=== PATIENT | male | born 1965 | race African-American/Black ===

== ENCOUNTER 2023-07-09 17:27 | Inpatient (IN) | payer OTHER ==
[2023-07-10] MEDS ORDERED: hydrOXYzine PAMOATE 25 MG CAPSULE (FP) PO PRN (01:38)
[2023-07-10] MEDS ORDERED: IBUPROFEN 600 MG TABLET (FP) PO PRN (01:38)
[2023-07-10] MEDS ORDERED: NALOXONE HCL (KLOXXADO) 8 MG SPRAY NS PRN (01:38)
[2023-07-10] MEDS ORDERED: MAGNESIUM HYDROX 2400MG/30ML ORAL SUSPENSION 30 ML CUP PO PRN (01:38)
[2023-07-10] MEDS ORDERED: BENZOCAINE/MENTHOL (CHLORASEPTIC ) LOZENGE MM PRN (01:38)
[2023-07-10] MEDS ORDERED: COLLOIDAL OATMEAL 1 BAR EACH TP PRN (01:38)
[2023-07-10] MEDS ORDERED: MAG HYDROX/AL HYDROX/SIMETH 30 ML UNIT-DOSE CUP PO PRN (01:38)
[2023-07-10] MEDS ORDERED: IBUPROFEN 400 MG TABLET (FP) PO PRN (01:38)
[2023-07-10] MEDS ORDERED: guaiFENesin 600 MG TABLET.ER (FP) PO PRN (01:38)
[2023-07-10] MEDS ORDERED: NICOTINE POLACRILEX 2 MG GUM BUC PRN (01:38)
[2023-07-10] MEDS ORDERED: POLYETHYLENE GLYCOL (HEALTHYLAX) 3350 17 GM PACKET PO PRN (01:38)
[2023-07-10] MEDS ORDERED: LOPERAMIDE HCL 2 MG CAPSULE PO PRN (01:38)
[2023-07-10] MEDS ORDERED: NALOXONE HCL 0.4 MG/ML VIAL IM PRN (01:38)
[2023-07-10] MEDS ORDERED: BENZONATATE 200 MG CAPSULE PO PRN (01:38)
[2023-07-10] MEDS ORDERED: ACETAMINOPHEN 325 MG TABLET (FP) PO PRN (01:38)
[2023-07-10] MEDS: INSULIN SLIDING SCALE (NOVOLOG) 1 VIAL SQ SCH ×3 (06:49→16:20)
[2023-07-10] MEDS: PRENATAL VITAMINS W/ FOLIC ACID TABLET (FP) PO SCH (09:58)
[2023-07-10] MEDS: NICOTINE 14 MG/24 HOURS TOPICAL PATCH TD SCH (09:59)
[2023-07-10] MEDS ORDERED: metFORMIN HCL 500 MG TABLET (FP) PO SCH (10:00)
[2023-07-10 11:49] LABS: HEMATOCRIT 36.7 % (35.4-49); HEMOGLOBIN 11.9 GM/dL (11.7-16.9); MCH 26.1 pg (25.7-33.7); MCHC 32.3 g/dl (32.0-35.9); MEAN CELL VOLUME 80.6 fl (80-96); MEAN PLT VOLUME 7.8 fl (7.5-11.1); PLATELET COUNT 409 10^3/uL (134-434); RBC 4.55 M/mm3 (4.00-5.60); RDW 14.5 % (11.9-15.9); WHITE BLOOD COUNT 8.5 K/mm3 (4.0-10.0)
[2023-07-10 12:02] LABS: POTASSIUM 5.1 mmol/L (3.5-5.1)
[2023-07-10 12:06] LABS: PH,URINE 5.5 (5.0-8.0); URINE APPEARANCE Clear; URINE BILIRUBIN Negative (NEGATIVE); URINE COLOR Yellow; URINE GLUCOSE (UA) 2+ (NEGATIVE); URINE KETONE Negative (NEGATIVE); URINE LEUK ESTERASE Negative (NEGATIVE); URINE NITRITE Negative (NEGATIVE); URINE PROTEIN 1+ (NEGATIVE); URINE UROBILINOGEN 0.2 mg/dL (0.2-1.0)
[2023-07-10 12:17] LABS: CALCIUM 8.9 mg/dL (8.5-10.1)
[2023-07-10 12:22] LABS: BILIRUBIN,TOTAL 0.2 mg/dL (0.2-1); TOT PROT 6.7 g/dl (6.4-8.2)
[2023-07-10 13:02] LABS: SYPHILIS W/ RPR CONF REACTIVE (NONREACTIVE)
[2023-07-10] MEDS: metFORMIN HCL 500 MG TABLET (FP) PO SCH (17:08)
[2023-07-10] MEDS: THIAMINE HCL 100 MG TABLET (FP) PO SCH (21:27)
[2023-07-10] MEDS: MELATONIN 5 MG TABLETS PO SCH (21:27)
[2023-07-11] MEDS: metFORMIN HCL 500 MG TABLET (FP) PO SCH ×2 (06:07→18:25)
[2023-07-11] MEDS: INSULIN SLIDING SCALE (NOVOLOG) 1 VIAL SQ SCH ×3 (07:06→16:30)
[2023-07-11] MEDS: NICOTINE 14 MG/24 HOURS TOPICAL PATCH TD SCH (09:46)
[2023-07-11] MEDS: PRENATAL VITAMINS W/ FOLIC ACID TABLET (FP) PO SCH (09:46)
[2023-07-11] MEDS ORDERED: TUBERCULIN PPD 5 TU/0.1ML VIAL ID ONE (11:07)
[2023-07-11] MEDS ORDERED: TUBERCULIN PPD 5 TU/0.1ML SYRINGE (IN PATIENT USE ONLY) ID ONE (12:00)
[2023-07-11] MEDS: THIAMINE HCL 100 MG TABLET (FP) PO SCH (21:17)
[2023-07-11] MEDS: MELATONIN 5 MG TABLETS PO SCH (21:17)
[2023-07-12] MEDS: metFORMIN HCL 500 MG TABLET (FP) PO SCH ×2 (06:08→17:32)
[2023-07-12] MEDS: INSULIN SLIDING SCALE (NOVOLOG) 1 VIAL SQ SCH ×3 (06:50→16:27)
[2023-07-12] MEDS: PRENATAL VITAMINS W/ FOLIC ACID TABLET (FP) PO SCH (10:03)
[2023-07-12] MEDS: NICOTINE 14 MG/24 HOURS TOPICAL PATCH TD SCH (10:03)
[2023-07-12] MEDS ORDERED: LACTULOSE 20 GM/30 ML UDC (FOR ORAL USE ONLY) PO PRN (10:28)
[2023-07-12] MEDS: PANTOPRAZOLE 20 MG TABLET PO SCH (11:08)
[2023-07-12] MEDS: BACITRACIN 0.9 GM PACKET TP SCH ×2 (11:08→21:28)
[2023-07-12] MEDS: MELATONIN 5 MG TABLETS PO SCH (21:28)
[2023-07-12] MEDS: THIAMINE HCL 100 MG TABLET (FP) PO SCH (21:28)
[2023-07-12] MEDS ORDERED: ONDANSETRON *ODT* 4 MG TABLET SL ONE (22:35)
[2023-07-13] MEDS: INSULIN SLIDING SCALE (NOVOLOG) 1 VIAL SQ SCH ×3 (06:33→16:25)
[2023-07-13] MEDS: metFORMIN HCL 500 MG TABLET (FP) PO SCH ×2 (06:34→17:03)
[2023-07-13] MEDS: NICOTINE 14 MG/24 HOURS TOPICAL PATCH TD SCH (10:24)
[2023-07-13] MEDS: BACITRACIN 0.9 GM PACKET TP SCH ×2 (10:24→21:34)
[2023-07-13] MEDS: PRENATAL VITAMINS W/ FOLIC ACID TABLET (FP) PO SCH (10:25)
[2023-07-13] MEDS: PANTOPRAZOLE 20 MG TABLET PO SCH (10:25)
[2023-07-13] MEDS ORDERED: TRIMETHOBENZAMIDE HCL 200MG/2ML INJ IM ONE (12:49)
[2023-07-13] MEDS: ONDANSETRON *ODT* 4 MG TABLET SL PRN (17:45)
[2023-07-13] MEDS: THIAMINE HCL 100 MG TABLET (FP) PO SCH (21:34)
[2023-07-13] MEDS: MELATONIN 5 MG TABLETS PO SCH (21:34)
[2023-07-14] MEDS: metFORMIN HCL 500 MG TABLET (FP) PO SCH ×2 (06:34→18:55)
[2023-07-14] MEDS: INSULIN SLIDING SCALE (NOVOLOG) 1 VIAL SQ SCH ×4 (06:34→16:52)
[2023-07-14] MEDS: ONDANSETRON *ODT* 4 MG TABLET SL PRN (07:16)
[2023-07-14] MEDS: PANTOPRAZOLE 20 MG TABLET PO SCH (09:40)
[2023-07-14] MEDS: BACITRACIN 0.9 GM PACKET TP SCH ×2 (09:40→21:42)
[2023-07-14] MEDS: PRENATAL VITAMINS W/ FOLIC ACID TABLET (FP) PO SCH (09:40)
[2023-07-14] MEDS: NICOTINE 14 MG/24 HOURS TOPICAL PATCH TD SCH (09:40)
[2023-07-14 18:48] VITALS: BMI 30.3
[2023-07-14] MEDS ORDERED: METOPROLOL TARTRATE 25 MG TABLET (FP) PO ONE (20:23)
[2023-07-14] MEDS: MELATONIN 5 MG TABLETS PO SCH (21:42)
[2023-07-14] MEDS: THIAMINE HCL 100 MG TABLET (FP) PO SCH (21:42)
[2023-07-15] MEDS: INSULIN SLIDING SCALE (NOVOLOG) 1 VIAL SQ SCH ×3 (06:20→17:55)
[2023-07-15] MEDS: metFORMIN HCL 500 MG TABLET (FP) PO SCH ×3 (07:03→19:07)
[2023-07-15] MEDS: PANTOPRAZOLE 20 MG TABLET PO SCH (09:49)
[2023-07-15] MEDS: BACITRACIN 0.9 GM PACKET TP SCH ×2 (09:49→21:22)
[2023-07-15] MEDS: PRENATAL VITAMINS W/ FOLIC ACID TABLET (FP) PO SCH (09:49)
[2023-07-15] MEDS: NICOTINE 14 MG/24 HOURS TOPICAL PATCH TD SCH (09:49)
[2023-07-15] MEDS ORDERED: SIMETHICONE 80 MG TAB.CHEW (FP) PO PRN (10:24)
[2023-07-15] MEDS: THIAMINE HCL 100 MG TABLET (FP) PO SCH (21:21)
[2023-07-15] MEDS: MELATONIN 5 MG TABLETS PO SCH (21:21)
[2023-07-16] MEDS: ONDANSETRON *ODT* 4 MG TABLET SL PRN (03:10)
[2023-07-16] MEDS: metFORMIN HCL 500 MG TABLET (FP) PO SCH ×2 (06:22→18:48)
[2023-07-16] MEDS: INSULIN SLIDING SCALE (NOVOLOG) 1 VIAL SQ SCH ×3 (07:48→18:49)
[2023-07-16] MEDS ORDERED: ASPIRIN 81 MG CHEWABLE TABLETS PO ONE (09:09)
[2023-07-16] MEDS: PRENATAL VITAMINS W/ FOLIC ACID TABLET (FP) PO SCH (09:25)
[2023-07-16] MEDS: BACITRACIN 0.9 GM PACKET TP SCH ×2 (09:26→21:20)
[2023-07-16] MEDS: NICOTINE 14 MG/24 HOURS TOPICAL PATCH TD SCH (09:26)
[2023-07-16] MEDS: PANTOPRAZOLE 20 MG TABLET PO SCH (09:26)
[2023-07-16 10:30] LABS: BASO % 0.3 % (0-2.0); EOS % 0.2 % (0-4.5); HEMATOCRIT 43.8 % (35.4-49); LYMPH % 15.4 % (8-40); MCH 26.5 pg (25.7-33.7); MCHC 34.2 g/dl (32.0-35.9); MEAN CELL VOLUME 77.4 fl (80-96); MEAN PLT VOLUME 7.5 fl (7.5-11.1); MONO % 6.5 % (3.8-10.2); NEUT % 77.6 % (42.8-82.8); PLATELET COUNT 456 10^3/uL (134-434); RBC 5.66 M/mm3 (4.00-5.60); RDW 14.8 % (11.9-15.9); WHITE BLOOD COUNT 11.5 K/mm3 (4.0-10.0)
[2023-07-16 10:52] LABS: POTASSIUM 4.3 mmol/L (3.5-5.1)
[2023-07-16 10:55] LABS: ALBUMIN 3.4 g/dl (3.4-5.0); BLOOD UREA NITROGEN 35.8 mg/dL (7-18); CALCIUM 9.2 mg/dL (8.5-10.1); MAGNESIUM 2.2 mg/dL (1.8-2.4)
[2023-07-16 10:58] LABS: CREATININE 1.8 mg/dL (0.55-1.3)
[2023-07-16 11:00] LABS: BILIRUBIN,TOTAL 0.6 mg/dL (0.2-1); TOT PROT 7.6 g/dl (6.4-8.2)
[2023-07-16] MEDS ORDERED: cloNIDine HCL 0.1 MG TABLET PO ONE (19:02)
[2023-07-16] MEDS: THIAMINE HCL 100 MG TABLET (FP) PO SCH (21:20)
[2023-07-16] MEDS: MELATONIN 5 MG TABLETS PO SCH (21:20)
[2023-07-16] MEDS ORDERED: MAG HYDROX/AL HYDROX/SIMETH 30 ML UNIT-DOSE CUP PO PRN (22:25)
[2023-07-17] MEDS: metFORMIN HCL 500 MG TABLET (FP) PO SCH ×2 (06:25→17:08)
[2023-07-17] MEDS: INSULIN SLIDING SCALE (NOVOLOG) 1 VIAL SQ SCH ×3 (07:11→16:20)
[2023-07-17] MEDS: PANTOPRAZOLE 20 MG TABLET PO SCH (09:04)
[2023-07-17] MEDS: PRENATAL VITAMINS W/ FOLIC ACID TABLET (FP) PO SCH (09:04)
[2023-07-17] MEDS: BACITRACIN 0.9 GM PACKET TP SCH ×2 (09:04→21:07)
[2023-07-17] MEDS: NICOTINE 14 MG/24 HOURS TOPICAL PATCH TD SCH (09:04)
[2023-07-17] MEDS: MELATONIN 5 MG TABLETS PO SCH (21:07)
[2023-07-17] MEDS: THIAMINE HCL 100 MG TABLET (FP) PO SCH (21:07)
[2023-07-18] MEDS: metFORMIN HCL 500 MG TABLET (FP) PO SCH ×2 (06:29→17:04)
[2023-07-18] MEDS: INSULIN SLIDING SCALE (NOVOLOG) 1 VIAL SQ SCH ×3 (07:23→16:17)
[2023-07-18] MEDS: NICOTINE 14 MG/24 HOURS TOPICAL PATCH TD SCH (10:09)
[2023-07-18] MEDS: PRENATAL VITAMINS W/ FOLIC ACID TABLET (FP) PO SCH (10:09)
[2023-07-18] MEDS: BACITRACIN 0.9 GM PACKET TP SCH ×2 (10:09→21:05)
[2023-07-18] MEDS: PANTOPRAZOLE 20 MG TABLET PO SCH (10:10)
[2023-07-18] MEDS: THIAMINE HCL 100 MG TABLET (FP) PO SCH (21:05)
[2023-07-18] MEDS: MELATONIN 5 MG TABLETS PO SCH (21:05)
[2023-07-19] MEDS: metFORMIN HCL 500 MG TABLET (FP) PO SCH ×2 (06:08→18:10)
[2023-07-19] MEDS: INSULIN SLIDING SCALE (NOVOLOG) 1 VIAL SQ SCH ×3 (07:14→16:18)
[2023-07-19] MEDS: NICOTINE 14 MG/24 HOURS TOPICAL PATCH TD SCH (10:06)
[2023-07-19] MEDS: PANTOPRAZOLE 20 MG TABLET PO SCH (10:06)
[2023-07-19] MEDS: PRENATAL VITAMINS W/ FOLIC ACID TABLET (FP) PO SCH (10:06)
[2023-07-19] MEDS: BACITRACIN 0.9 GM PACKET TP SCH ×2 (10:06→21:28)
[2023-07-19] MEDS: THIAMINE HCL 100 MG TABLET (FP) PO SCH (21:28)
[2023-07-19] MEDS: MELATONIN 5 MG TABLETS PO SCH (21:28)
[2023-07-20] MEDS: metFORMIN HCL 500 MG TABLET (FP) PO SCH ×2 (06:41→17:31)
[2023-07-20] MEDS: INSULIN SLIDING SCALE (NOVOLOG) 1 VIAL SQ SCH ×3 (06:41→16:25)
[2023-07-20] MEDS: PRENATAL VITAMINS W/ FOLIC ACID TABLET (FP) PO SCH (09:55)
[2023-07-20] MEDS: NICOTINE 14 MG/24 HOURS TOPICAL PATCH TD SCH (09:55)
[2023-07-20] MEDS: BACITRACIN 0.9 GM PACKET TP SCH ×2 (09:55→21:51)
[2023-07-20] MEDS: PANTOPRAZOLE 20 MG TABLET PO SCH (09:56)
[2023-07-20] MEDS: THIAMINE HCL 100 MG TABLET (FP) PO SCH (21:50)
[2023-07-20] MEDS: MELATONIN 5 MG TABLETS PO SCH (21:50)
[2023-07-21] MEDS: metFORMIN HCL 500 MG TABLET (FP) PO SCH ×2 (06:26→17:13)
[2023-07-21] MEDS: INSULIN SLIDING SCALE (NOVOLOG) 1 VIAL SQ SCH ×3 (06:26→16:38)
[2023-07-21] MEDS: PANTOPRAZOLE 20 MG TABLET PO SCH (10:05)
[2023-07-21] MEDS: NICOTINE 14 MG/24 HOURS TOPICAL PATCH TD SCH (10:05)
[2023-07-21] MEDS: PRENATAL VITAMINS W/ FOLIC ACID TABLET (FP) PO SCH (10:05)
[2023-07-21] MEDS: BACITRACIN 0.9 GM PACKET TP SCH ×2 (10:05→21:41)
[2023-07-21] MEDS: MELATONIN 5 MG TABLETS PO SCH (21:41)
[2023-07-21] MEDS: THIAMINE HCL 100 MG TABLET (FP) PO SCH (21:41)
[2023-07-22] MEDS: metFORMIN HCL 500 MG TABLET (FP) PO SCH ×2 (06:15→18:40)
[2023-07-22] MEDS: INSULIN SLIDING SCALE (NOVOLOG) 1 VIAL SQ SCH ×3 (07:10→16:31)
[2023-07-22] MEDS: PRENATAL VITAMINS W/ FOLIC ACID TABLET (FP) PO SCH (09:55)
[2023-07-22] MEDS: NICOTINE 14 MG/24 HOURS TOPICAL PATCH TD SCH (09:55)
[2023-07-22] MEDS: PANTOPRAZOLE 20 MG TABLET PO SCH (09:55)
[2023-07-22] MEDS: BACITRACIN 0.9 GM PACKET TP SCH ×2 (09:56→21:19)
[2023-07-22] MEDS: MELATONIN 5 MG TABLETS PO SCH (21:19)
[2023-07-22] MEDS: THIAMINE HCL 100 MG TABLET (FP) PO SCH (21:19)
[2023-07-23] MEDS: metFORMIN HCL 500 MG TABLET (FP) PO SCH ×2 (06:08→17:13)
[2023-07-23] MEDS: INSULIN SLIDING SCALE (NOVOLOG) 1 VIAL SQ SCH ×3 (07:05→16:22)
[2023-07-23] MEDS: PRENATAL VITAMINS W/ FOLIC ACID TABLET (FP) PO SCH (10:02)
[2023-07-23] MEDS: PANTOPRAZOLE 20 MG TABLET PO SCH (10:02)
[2023-07-23] MEDS: BACITRACIN 0.9 GM PACKET TP SCH ×2 (10:03→21:07)
[2023-07-23] MEDS: NICOTINE 14 MG/24 HOURS TOPICAL PATCH TD SCH (10:03)
[2023-07-23] MEDS: THIAMINE HCL 100 MG TABLET (FP) PO SCH (21:07)
[2023-07-23] MEDS: MELATONIN 5 MG TABLETS PO SCH (21:07)
[2023-07-24] MEDS: metFORMIN HCL 500 MG TABLET (FP) PO SCH ×2 (06:19→17:33)
[2023-07-24] MEDS: INSULIN SLIDING SCALE (NOVOLOG) 1 VIAL SQ SCH ×3 (06:37→16:26)
[2023-07-24] MEDS: BACITRACIN 0.9 GM PACKET TP SCH ×2 (09:38→21:15)
[2023-07-24] MEDS: PRENATAL VITAMINS W/ FOLIC ACID TABLET (FP) PO SCH (09:38)
[2023-07-24] MEDS: PANTOPRAZOLE 20 MG TABLET PO SCH (09:38)
[2023-07-24] MEDS: NICOTINE 14 MG/24 HOURS TOPICAL PATCH TD SCH (09:38)
[2023-07-24] MEDS: MELATONIN 5 MG TABLETS PO SCH (21:14)
[2023-07-24] MEDS: THIAMINE HCL 100 MG TABLET (FP) PO SCH (21:14)
[2023-07-25] MEDS: metFORMIN HCL 500 MG TABLET (FP) PO SCH ×2 (06:17→17:12)
[2023-07-25] MEDS: INSULIN SLIDING SCALE (NOVOLOG) 1 VIAL SQ SCH ×4 (07:03→22:11)
[2023-07-25] MEDS: NICOTINE 14 MG/24 HOURS TOPICAL PATCH TD SCH (09:15)
[2023-07-25] MEDS: PRENATAL VITAMINS W/ FOLIC ACID TABLET (FP) PO SCH (09:15)
[2023-07-25] MEDS: PANTOPRAZOLE 20 MG TABLET PO SCH (09:15)
[2023-07-25] MEDS: BACITRACIN 0.9 GM PACKET TP SCH ×2 (09:15→21:26)
[2023-07-25] MEDS: MELATONIN 5 MG TABLETS PO SCH (21:26)
[2023-07-25] MEDS: THIAMINE HCL 100 MG TABLET (FP) PO SCH (21:26)
[2023-07-26] MEDS: metFORMIN HCL 500 MG TABLET (FP) PO SCH ×2 (06:24→17:04)
[2023-07-26] MEDS: INSULIN SLIDING SCALE (NOVOLOG) 1 VIAL SQ SCH ×4 (06:26→21:01)
[2023-07-26] MEDS: BACITRACIN 0.9 GM PACKET TP SCH ×2 (09:33→21:02)
[2023-07-26] MEDS: PANTOPRAZOLE 20 MG TABLET PO SCH (09:34)
[2023-07-26] MEDS: PRENATAL VITAMINS W/ FOLIC ACID TABLET (FP) PO SCH (09:34)
[2023-07-26] MEDS: NICOTINE 14 MG/24 HOURS TOPICAL PATCH TD SCH (09:34)
[2023-07-26] MEDS: MELATONIN 5 MG TABLETS PO SCH (21:01)
[2023-07-26] MEDS: THIAMINE HCL 100 MG TABLET (FP) PO SCH (21:26)
[2023-07-27] MEDS: metFORMIN HCL 500 MG TABLET (FP) PO SCH ×2 (06:49→17:06)
[2023-07-27] MEDS: INSULIN SLIDING SCALE (NOVOLOG) 1 VIAL SQ SCH ×4 (06:49→21:16)
[2023-07-27] MEDS: BACITRACIN 0.9 GM PACKET TP SCH ×2 (09:41→21:16)
[2023-07-27] MEDS: NICOTINE 14 MG/24 HOURS TOPICAL PATCH TD SCH (09:41)
[2023-07-27] MEDS: PRENATAL VITAMINS W/ FOLIC ACID TABLET (FP) PO SCH (09:41)
[2023-07-27] MEDS: PANTOPRAZOLE 20 MG TABLET PO SCH (09:41)
[2023-07-27] MEDS: THIAMINE HCL 100 MG TABLET (FP) PO SCH (21:16)
[2023-07-27] MEDS: MELATONIN 5 MG TABLETS PO SCH (21:16)
[2023-07-28] MEDS: metFORMIN HCL 500 MG TABLET (FP) PO SCH ×2 (06:00→18:27)
[2023-07-28] MEDS: INSULIN SLIDING SCALE (NOVOLOG) 1 VIAL SQ SCH ×4 (06:16→21:17)
[2023-07-28] MEDS: NICOTINE 14 MG/24 HOURS TOPICAL PATCH TD SCH (09:19)
[2023-07-28] MEDS: PANTOPRAZOLE 20 MG TABLET PO SCH (09:19)
[2023-07-28] MEDS: BACITRACIN 0.9 GM PACKET TP SCH ×2 (09:19→21:17)
[2023-07-28] MEDS: PRENATAL VITAMINS W/ FOLIC ACID TABLET (FP) PO SCH (09:19)
[2023-07-28] MEDS: MELATONIN 5 MG TABLETS PO SCH (21:17)
[2023-07-28] MEDS: THIAMINE HCL 100 MG TABLET (FP) PO SCH (21:17)
[2023-07-29] MEDS: metFORMIN HCL 500 MG TABLET (FP) PO SCH ×2 (06:10→17:24)
[2023-07-29] MEDS: INSULIN SLIDING SCALE (NOVOLOG) 1 VIAL SQ SCH ×4 (06:13→21:44)
[2023-07-29] MEDS: PANTOPRAZOLE 20 MG TABLET PO SCH (09:26)
[2023-07-29] MEDS: PRENATAL VITAMINS W/ FOLIC ACID TABLET (FP) PO SCH (09:26)
[2023-07-29] MEDS: BACITRACIN 0.9 GM PACKET TP SCH ×2 (09:27→21:26)
[2023-07-29] MEDS: NICOTINE 14 MG/24 HOURS TOPICAL PATCH TD SCH (09:27)
[2023-07-29] MEDS: THIAMINE HCL 100 MG TABLET (FP) PO SCH (21:26)
[2023-07-29] MEDS: MELATONIN 5 MG TABLETS PO SCH (21:26)
[2023-07-30] MEDS: metFORMIN HCL 500 MG TABLET (FP) PO SCH ×2 (06:00→18:13)
[2023-07-30] MEDS: INSULIN SLIDING SCALE (NOVOLOG) 1 VIAL SQ SCH ×4 (07:27→21:20)
[2023-07-30] MEDS: PANTOPRAZOLE 20 MG TABLET PO SCH (09:24)
[2023-07-30] MEDS: PRENATAL VITAMINS W/ FOLIC ACID TABLET (FP) PO SCH (09:24)
[2023-07-30] MEDS: BACITRACIN 0.9 GM PACKET TP SCH ×2 (09:24→21:21)
[2023-07-30] MEDS: NICOTINE 14 MG/24 HOURS TOPICAL PATCH TD SCH (09:24)
[2023-07-30] MEDS: MELATONIN 5 MG TABLETS PO SCH (21:20)
[2023-07-30] MEDS: THIAMINE HCL 100 MG TABLET (FP) PO SCH (21:21)
[2023-07-31] MEDS: metFORMIN HCL 500 MG TABLET (FP) PO SCH ×2 (06:13→17:42)
[2023-07-31] MEDS: INSULIN SLIDING SCALE (NOVOLOG) 1 VIAL SQ SCH ×4 (07:22→21:20)
[2023-07-31] MEDS: PRENATAL VITAMINS W/ FOLIC ACID TABLET (FP) PO SCH (09:45)
[2023-07-31] MEDS: PANTOPRAZOLE 20 MG TABLET PO SCH (09:45)
[2023-07-31] MEDS: NICOTINE 14 MG/24 HOURS TOPICAL PATCH TD SCH (09:45)
[2023-07-31] MEDS: BACITRACIN 0.9 GM PACKET TP SCH ×2 (09:45→21:21)
[2023-07-31] MEDS: THIAMINE HCL 100 MG TABLET (FP) PO SCH (21:20)
[2023-07-31] MEDS: MELATONIN 5 MG TABLETS PO SCH (21:20)
[2023-08-01] MEDS: metFORMIN HCL 500 MG TABLET (FP) PO SCH ×2 (06:25→18:20)
[2023-08-01] MEDS: INSULIN SLIDING SCALE (NOVOLOG) 1 VIAL SQ SCH ×4 (06:28→21:22)
[2023-08-01] MEDS: BACITRACIN 0.9 GM PACKET TP SCH ×2 (10:18→21:21)
[2023-08-01] MEDS: PRENATAL VITAMINS W/ FOLIC ACID TABLET (FP) PO SCH (10:18)
[2023-08-01] MEDS: PANTOPRAZOLE 20 MG TABLET PO SCH (10:18)
[2023-08-01] MEDS: NICOTINE 14 MG/24 HOURS TOPICAL PATCH TD SCH (10:19)
[2023-08-01] MEDS: THIAMINE HCL 100 MG TABLET (FP) PO SCH (21:21)
[2023-08-01] MEDS: MELATONIN 5 MG TABLETS PO SCH (21:21)
[2023-08-02] MEDS: metFORMIN HCL 500 MG TABLET (FP) PO SCH ×2 (06:07→17:14)
[2023-08-02] MEDS: INSULIN SLIDING SCALE (NOVOLOG) 1 VIAL SQ SCH ×4 (06:09→21:29)
[2023-08-02] MEDS: PANTOPRAZOLE 20 MG TABLET PO SCH (10:46)
[2023-08-02] MEDS: BACITRACIN 0.9 GM PACKET TP SCH ×2 (10:46→21:29)
[2023-08-02] MEDS: NICOTINE 14 MG/24 HOURS TOPICAL PATCH TD SCH (10:46)
[2023-08-02] MEDS: PRENATAL VITAMINS W/ FOLIC ACID TABLET (FP) PO SCH (10:46)
[2023-08-02 11:10] VITALS: RESP 18
[2023-08-02] MEDS: MELATONIN 5 MG TABLETS PO SCH (21:28)
[2023-08-02] MEDS: THIAMINE HCL 100 MG TABLET (FP) PO SCH (21:28)
[2023-08-03] MEDS: metFORMIN HCL 500 MG TABLET (FP) PO SCH ×2 (06:16→17:07)
[2023-08-03] MEDS: INSULIN SLIDING SCALE (NOVOLOG) 1 VIAL SQ SCH ×4 (06:17→21:41)
[2023-08-03] MEDS: BACITRACIN 0.9 GM PACKET TP SCH ×2 (10:21→21:41)
[2023-08-03] MEDS: PANTOPRAZOLE 20 MG TABLET PO SCH (10:21)
[2023-08-03] MEDS: NICOTINE 14 MG/24 HOURS TOPICAL PATCH TD SCH (10:21)
[2023-08-03] MEDS: PRENATAL VITAMINS W/ FOLIC ACID TABLET (FP) PO SCH (10:21)
[2023-08-03] MEDS: THIAMINE HCL 100 MG TABLET (FP) PO SCH (21:40)
[2023-08-03] MEDS: MELATONIN 5 MG TABLETS PO SCH (21:41)
[2023-08-04] MEDS: metFORMIN HCL 500 MG TABLET (FP) PO SCH ×2 (06:44→17:16)
[2023-08-04] MEDS: INSULIN SLIDING SCALE (NOVOLOG) 1 VIAL SQ SCH ×4 (06:44→21:41)
[2023-08-04] MEDS: PANTOPRAZOLE 20 MG TABLET PO SCH (09:38)
[2023-08-04] MEDS: BACITRACIN 0.9 GM PACKET TP SCH ×2 (09:38→23:39)
[2023-08-04] MEDS: PRENATAL VITAMINS W/ FOLIC ACID TABLET (FP) PO SCH (09:38)
[2023-08-04] MEDS: NICOTINE 14 MG/24 HOURS TOPICAL PATCH TD SCH (09:39)
[2023-08-04] MEDS: MELATONIN 5 MG TABLETS PO SCH (21:41)
[2023-08-04] MEDS: THIAMINE HCL 100 MG TABLET (FP) PO SCH (21:41)
[2023-08-05] MEDS: metFORMIN HCL 500 MG TABLET (FP) PO SCH ×2 (06:44→17:22)
[2023-08-05] MEDS: INSULIN SLIDING SCALE (NOVOLOG) 1 VIAL SQ SCH ×4 (06:46→21:32)
[2023-08-05] MEDS: NICOTINE 14 MG/24 HOURS TOPICAL PATCH TD SCH (10:37)
[2023-08-05] MEDS: BACITRACIN 0.9 GM PACKET TP SCH ×2 (10:37→21:30)
[2023-08-05] MEDS: PANTOPRAZOLE 20 MG TABLET PO SCH (10:37)
[2023-08-05] MEDS: PRENATAL VITAMINS W/ FOLIC ACID TABLET (FP) PO SCH (10:37)
[2023-08-05] MEDS: THIAMINE HCL 100 MG TABLET (FP) PO SCH (21:29)
[2023-08-05] MEDS: MELATONIN 5 MG TABLETS PO SCH (21:29)
[2023-08-06] MEDS: metFORMIN HCL 500 MG TABLET (FP) PO SCH (06:50)
[2023-08-06] MEDS: INSULIN SLIDING SCALE (NOVOLOG) 1 VIAL SQ SCH (06:50)
[2023-08-06 07:21] VITALS: BP 139/80; PULSE 85; TEMP 97.5
[2023-08-06] MEDS: PANTOPRAZOLE 20 MG TABLET PO SCH (09:08)
[2023-08-06] MEDS: PRENATAL VITAMINS W/ FOLIC ACID TABLET (FP) PO SCH (09:08)
[2023-08-06] MEDS: BACITRACIN 0.9 GM PACKET TP SCH (09:08)
[2023-08-06] MEDS: NICOTINE 14 MG/24 HOURS TOPICAL PATCH TD SCH (09:09)
== END 2023-08-06 09:46 | disposition home or self-care (01) | DRG 772 ==
LOC: YASAS 17:27 → Y3W 22:39 → UNDOADMIN 22:39 → Y3W 07-16 17:07
PROVIDERS: ADMIT Allergy & Immunology; ATTEND Psychiatry & Neurology Pain Medicine
PROC: HZ42ZZZ Group Counseling for Substance Abuse Treatment, Cognitive-Behavioral (ICD-10-PCS; principal; 2023-07-16)
DX: F10.20 Alcohol dependence, uncomplicated (principal); F14.20 Cocaine dependence, uncomplicated; E78.5 Hyperlipidemia, unspecified; I10 Essential (primary) hypertension; E11.9 Type 2 diabetes mellitus without complications; Z79.84 Long term (current) use of oral hypoglycemic drugs; H54.61 Unqualified visual loss, right eye, normal vision left eye; R11.2 Nausea with vomiting, unspecified; M79.89 Other specified soft tissue disorders; Z87.891 Personal history of nicotine dependence; Z99.89 Dependence on other enabling machines and devices
CPT/HCPCS: 36415; 71045-TC-FY; 80053; 81003; 82140; 82550; 82962; 83690; 83735; 84484; 85025; 85027; 86593; 86780; 86803; 87635; 93005; 93010; 99284-25; Q0162

== ENCOUNTER 2023-07-14 10:12 | Emergency (ER) | payer OTHER ==
[2023-07-14 10:28] VITALS: BMI 32.0
[2023-07-14] MEDS ORDERED: ONDANSETRON 4 MG/2 ML VIAL IVPUSH ONE (11:26)
[2023-07-14] MEDS ORDERED: LACTATED RINGERS SOLUTION 1000 ML INFUS.BAG IV ONE ×2 (11:30→16:01)
[2023-07-14] MEDS ORDERED: ONDANSETRON 4 MG/2 ML VIAL ONE (11:53)
[2023-07-14 12:06] LABS: BASO % 0.6 % (0-2.0); EOS % 0.1 % (0-4.5); HEMATOCRIT 43.5 % (35.4-49); HEMOGLOBIN 14.7 GM/dL (11.7-16.9); LYMPH % 8.7 % (8-40); MCH 26.3 pg (25.7-33.7); MCHC 33.8 g/dl (32.0-35.9); MEAN CELL VOLUME 77.9 fl (80-96); MEAN PLT VOLUME 7.4 fl (7.5-11.1); MONO % 4.6 % (3.8-10.2); PLATELET COUNT 473 10^3/uL (134-434); RBC 5.59 M/mm3 (4.00-5.60); RDW 14.9 % (11.9-15.9); WHITE BLOOD COUNT 11.9 K/mm3 (4.0-10.0)
[2023-07-14 12:29] LABS: POTASSIUM 4.8 mmol/L (3.5-5.1); VENOUS BASE EXCESS 4.6 mmol/L (-2-2); VENOUS O2 SATURATION 57.1 % (70-80); VENOUS PCO2 45.5 mmHg (38-52); VENOUS PH 7.433 (7.310-7.410)
[2023-07-14 12:32] LABS: ALBUMIN 3.5 g/dl (3.4-5.0); BLOOD UREA NITROGEN 36.8 mg/dL (7-18); CALCIUM 9.8 mg/dL (8.5-10.1)
[2023-07-14 12:37] LABS: BILIRUBIN,TOTAL 0.4 mg/dL (0.2-1); TOT PROT 7.9 g/dl (6.4-8.2)
[2023-07-14 14:04] VITALS: RESP 18
[2023-07-14 17:10] VITALS: BP 157/89; PULSE 101; TEMP 99
== END 2023-07-14 17:10 | disposition home or self-care (01) ==
LOC: JER 10:12
PROC: 3E033GC Introduction of Other Therapeutic Substance into Peripheral Vein, Percutaneous Approach (ICD-10-PCS; principal; 2023-07-14)
DX: R11.2 Nausea with vomiting, unspecified (principal)
CPT/HCPCS: 36415; 80053; 82803; 83690; 85025; 99284-25